=== PATIENT | female | born 1980 | race American Indian/Alaskan Native ===

== ENCOUNTER 2016-05-26 19:49 | Emergency (ER) | payer MEDICAID ==
[2016-05-26 19:49] VITALS: BMI 54.8
[2016-05-26 20:08] VITALS: BP 137/90; PULSE 98; TEMP 97.5; O2SAT 97
[2016-05-26] MEDS ORDERED: Bacitracin 500 Units/gm Oint Foilpak UD ONE (21:01)
--- NOTE | 2016-05-26 21:07 | C.PDOC ---
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 Pt admits, takes Plavix, noted bleeding from wound, was unable to stop bleeding. Otherwise, pt denies fever, chills, weakness, sensory or vascular deficits to injured finger, no deformity. Ambulate to ED for evaluation, not in any apparent distress. Time Seen by Provider: 05/26/16 20:14 Chief Complaint (Nursing): Abnormal Skin Integrity History Per: Patient Onset/Duration Of Symptoms: Sudden Onset Current Symptoms Are (Timing): Still Present Past Medical History Reviewed: Historical Data, Nursing Documentation, Vital Signs Vital Signs: Last Vital Signs Temp 97.5 F L 05/26/16 20:03 Pulse 98 H 05/26/16 20:03 Resp 16 05/26/16 20:03 BP 137/90 05/26/16 20:03 Pulse Ox 97 05/26/16 20:03 - Medical History PMH: Anemia, Arthritis, Atrial Fibrillation, Cardia Arrhythmia, HTN, Hyperthyroidism, Hypothyroidism Denies: Chronic Kidney Disease - [employer] Procedures ASSISTANCE WITH RESPIRATORY VENTILATION, 24-96 HRS, CPAP (08/10/15) Family History: States: Unknown Family Hx - Social History Hx Tobacco Use: No (stopped 2 yrs.ago) Hx Alcohol Use: No Hx Substance Use: No - Immunization History Hx Tetanus Toxoid Vaccination: No Hx Influenza Vaccination: No Hx Pneumococcal Vaccination: No Review Of Systems Except As Marked, All Systems Reviewed And Found Negative. Constitutional: Negative for: Fever, Chills Musculoskeletal: Negative for: Hand Pain Skin: Positive for: Lesions Neurological: Negative for: Weakness, Numbness Physical Exam - Physical Exam Appears: Well, Non-toxic, No Acute Distress Skin: Normal Color, Warm, Other (Left 1st distal phalanx skin avulsion at tip with mild bloody oozing. NO FB, FAROM, no neurovascular deficits.) Extremity: Normal ROM, No Tenderness, Capillary Refill (less than 2sec to left thumb), No Deformity, No Swelling Neurological/Psych: Oriented x3, Normal Speech, Normal Motor, Normal Sensation, Normal Reflexes ED Course And Treatment O2 Sat by Pulse Oximetry: 97 Progress Note: On re-evaluation, pt is afebrile, hemodynamicaly stable. non- toxic. left hand: laceration repaired with suture w/o complication. FAROM, no neurovascular deficits. Pt advised on wound care. ref. to f/u with PMD In 2 days for wound check. return to ED if any worsening or new changes. Laceration - Laceration Repair Finger laceration Wound Length (In cm): 2 Description Of Wound: Clean (skin avulsion) Anesthesia: Lidocaine 2% (digital block to left thumb) Wound Examination: Irrigated With Saline, No FB With Wound Exploration, No Tendon Injury With Wound Exploration Wound Closure: Suture (#2) Suture Technique And Material Used: Interrupted, Nylon (509) Wound Complexity: Simple Disposition Counseled Patient/Family Regarding: Diagnosis, Need For Followup - Disposition Referrals: [facility] [Outside] Disposition: HOME/ ROUTINE Disposition Time: 21:05 Condition: STABLE Additional Instructions: keep wound clean, dry Avid water exposure for 1 week Suture removal in 5-7 days Follow up with PMD in 2 days for wound check as need return to Ed at any time if any worsening or new changes. Instructions: Finger Laceration (ED) - Clinical Impression Clinical Impression: Laceration of finger
[2016-05-26 21:18] VITALS: RESP 20
== END 2016-05-26 21:17 | disposition home or self-care (01) ==
LOC: C.ER 19:49
DX: S61.012A Laceration without foreign body of left thumb without damage to nail, initial encounter (principal); W26.0XXA Contact with knife, initial encounter; Y93.G3 Activity, cooking and baking; Y92.000 Kitchen of unspecified non-institutional (private) residence as the place of occurrence of the external cause

== ENCOUNTER 2016-07-12 08:17 | Day surgery (SDC) | payer MEDICAID ==
[2016-06-20 10:19] VITALS: BMI 62.1
[~2016-07-12 08:17] MED LIST: HYDROmorphone 0.5 mg/0.5 ml ISec IVP ONE
[2016-07-12] MEDS ORDERED: Acetaminophen/Codeine elixir 120-12mg/5ml PO PRN (08:28)
[2016-07-12] MEDS ORDERED: Dextrose 5%/0.45% NS 1,000 ML IV SCH (08:30)
[2016-07-12] MEDS ORDERED: ceFAZolin IV 1 gm in Dextrose 0 GM/0 ML BAG IVPB ONE (09:43)
[2016-07-12] MEDS ORDERED: Etomidate 20 mg/10ml Inj IV ONE (10:06)
[2016-07-12] MEDS ORDERED: ceFAZolin IV 2 gm in Dextrose 1 GM/50 ML BAG IVPB ONE (10:09)
[2016-07-12] MEDS ORDERED: Propofol 10 mg/ml Inj (20 ML) ONE (10:36)
[2016-07-12] MEDS ORDERED: HYDROmorphone 0.5 mg/0.5 ml ISec IVP PRN (11:01)
[2016-07-12] MEDS ORDERED: HYDROmorphone 0.5 mg/0.5 ml ISec ONE (11:05)
[2016-07-12] MEDS ORDERED: HYDROmorphone 0.5 mg/0.5 ml ISec IVP ONE ×2 (11:42→12:38)
--- NOTE | 2016-07-12 11:52 | OP ---
PROCEDURE DATE: 07/12/2016 PREOPERATIVE DIAGNOSIS: Chronic tonsillitis. POSTOPERATIVE DIAGNOSIS: Chronic tonsillitis. PROCEDURE: Tonsillectomy. SIGNIFICANT FINDINGS: Chronically infected tonsils. DESCRIPTION OF PROCEDURE: The patient was brought in room, placed in supine position. Anesthesia was initiated through an ET tube. The patient was draped in the usual manner. Mouth gag was placed in the oral cavity, opened, suspended on towels that were placed on the patient's chest. Right tonsil was grasped, pulled medially. Incision was made in the anterior tonsillar pillar using a plasma knife. Dissection was done between tonsil and tonsillar fossa using plasma knife until the tonsil was removed. Bleeding was controlled using a plasma knife. Next, the other tonsil was grasped, pulled medially. Incision was made in the anterior tonsillar pillar using a plasma knife. Dissection was done between tonsil and tonsillar fossa using a plasma knife until the tonsil was removed. Bleeding was controlled using plasma knife. Both tonsillar beds were rubbed vigorously with plasma knife wand. No bleeding was noted. Mouth gag was let down for 30 seconds, put back up. No bleeding was noted. The patient was then taken off anesthesia and taken to recovery room in stable manner. Boris Kaur MD cc: [id number] TT: 07/12/2016 11:51:44 raoul LLOYD
[2016-07-12] MEDS ORDERED: DiphenhydrAMINE 50 mg/ml Inj IVP STA (12:33)
[2016-07-12] MEDS ORDERED: DiphenhydrAMINE 50 mg/ml Inj ONE (12:38)
[2016-07-12] MEDS ORDERED: DiphenhydrAMINE 50 mg/ml Inj IVP ONE (13:15)
[2016-07-12 14:04] VITALS: O2SAT 97
[2016-07-12 14:35] VITALS: BP 113/85; PULSE 80; RESP 17; TEMP 98
== END 2016-07-12 15:30 | disposition home or self-care (01) ==
LOC: C.SDS 08:17
PROVIDERS: ATTEND Otolaryngology
DX: J35.01 Chronic tonsillitis (principal)
CPT/HCPCS: 42826; 88304; J1170; J1200; J2704; J3010; J7040

== ENCOUNTER 2017-03-24 16:52 | Emergency (ER) | payer MEDICAID ==
[2017-03-24 17:43] VITALS: BMI 47.2
--- NOTE | 2017-03-24 19:12 | C.PDOC ---
History Of Present Illness 37 year old female presents to the ER with a complaint of intermittent dizziness that she describes as a spinning sensation for the past few days associated with palpitations. Denies chest pain, SOB, or syncopal episodes. Chief Complaint (Nursing): Dizziness/Lightheaded History Per: Patient History/Exam Limitations: no limitations Onset/Duration Of Symptoms: Days, Intermittent Episodes Current Symptoms Are (Timing): Still Present Activity At Onset Of Symptoms: Standing Seizure Or Post-ictal Symptoms: None Possible Causative Factor(s): Other (Not known) Fall Associated With With Symptoms: No Recent travel outside of the [place]: No - Symptoms Of CVA Associated Symptoms: denies: Impaired Speech, Seizure Activity, New Vision Deficit(Left), New Vision Deficit(Right), Decreased Ability To Walk, New Confusion Past Medical History Reviewed: Historical Data, Nursing Documentation, Vital Signs Vital Signs: Last Vital Signs Temp 98.5 F 03/24/17 17:45 Pulse 78 03/24/17 17:45 Resp 18 03/24/17 17:45 BP 140/97 H 03/24/17 17:45 Pulse Ox 100 03/24/17 19:18 - Medical History PMH: Anemia, Anxiety (NO MEDS.), Arthritis, Atrial Fibrillation, Cardia Arrhythmia (A-FIB), Fractures (LEFT FOOT(2014)), HTN, Hyperthyroidism, Hypothyroidism, Peripheral Edema, Sleep Apnea Surgical History: Tonsillectomy - [facility] Procedures ASSISTANCE WITH RESPIRATORY VENTILATION, 24-96 HRS, CPAP (08/10/15) Family History: States: Unknown Family Hx - Social History Hx Tobacco Use: No (stopped 2 yrs.ago) Hx Alcohol Use: Yes Hx Substance Use: No - Immunization History Hx Tetanus Toxoid Vaccination: No Hx Influenza Vaccination: Yes (2017) Hx Pneumococcal Vaccination: No Review Of Systems Constitutional: Negative for: Fever, Chills Cardiovascular: Positive for: Palpitations. Negative for: Chest Pain Respiratory: Negative for: Shortness of Breath Gastrointestinal: Negative for: Nausea, Vomiting Neurological: Positive for: Dizziness. Negative for: Other (Syncope) Physical Exam - Physical Exam Appears: Non-toxic, Other (Alert, Conscious) Skin: Normal Color, Warm, Dry Head: Atraumatic, Normacephalic Eye(s): bilateral: Normal Inspection, PERRL, EOMI Ear(s): Bilateral: Normal Oral Mucosa: Moist Neck: Normal, Supple Chest: Symmetrical, No Tenderness Cardiovascular: Rhythm Irregular Respiratory: Normal Breath Sounds, No Rales, No Rhonchi, No Wheezing Gastrointestinal/Abdominal: Soft, No Tenderness Neurological/Psych: Oriented x3, Normal Speech, Other (No focal deficits) ED Course And Treatment - Laboratory Results Result Diagrams: 03/24/17 19:25 03/24/17 19:25 O2 Sat by Pulse Oximetry: 100 (Room air) Pulse Ox Interpretation: Normal Progress Note: CT head, blood work, and urinalysis ordered. Antivert administered. Disposition Counseled Patient/Family Regarding: Diagnosis - Disposition Referrals: [facility] [Outside] Disposition: HOME/ ROUTINE Disposition Time: 23:07 Condition: STABLE Prescriptions: Meclizine [Antivert] 12.5 mg PO Q6 #14 tab Instructions: Dizziness (ED), Vertigo (ED) Forms: [facility] (Tongan) - POA Present On Arrival: None - Clinical Impression Clinical Impression: Dizziness, Vertigo - Scribe Statement The provider has reviewed the documentation as recorded by the Scribosmin Gould All medical record entries made by the Lunaibosmin were at my direction and personally dictated by me. I have reviewed the chart and agree that the record accurately reflects my personal performance of the history, physical exam, medical decision making, and the department course for this patient. I have also personally directed, reviewed, and agree with the discharge instructions and disposition.
[2017-03-24 19:29] LABS: BASO % 0.5 % (0.0-2.0); EOS % 0.4 % (0.0-4.0); HEMOGLOBIN 12.8 g/dL (11.0-16.0); LYMPH # 1.7 K/uL (1.0-4.3); LYMPH % 16.5 % (20.0-40.0); MEAN CORPUSCULAR HEMOGLOBIN 27.4 pg (27.0-31.0); MEAN CORPUSCULAR HGB CONC 32.3 g/dL (33.0-37.0); MEAN PLATELET VOLUME 8.7 fL (7.2-11.7); MONO # 0.7 K/uL (0.0-0.8); MONO % 6.7 % (0.0-10.0); NEUT # 7.8 K/uL (1.8-7.0); NEUT % 75.9 % (50.0-75.0); RBC 4.68 Mil/uL (3.80-5.20); RED CELL DISTRIBUTION WIDTH 18.4 % (11.5-14.5); WHITE BLOOD COUNT 10.3 K/uL (4.8-10.8)
[2017-03-24 19:36] LABS: INR 1.2; PROTHROMBIN TIME 13.1 SECONDS (9.7-12.2)
[2017-03-24 19:42] LABS: CALCIUM 8.8 mg/dl (8.6-10.4); GFR AFRICAN-AMERICAN > 60; GFR NON-AFRICAN AMERICAN > 60
[2017-03-24 19:45] LABS: ALB/GLOB RATIO 0.9 (1.0-2.1); ALT/SGPT 25 U/L (9-52); AST/SGOT 61 U/L (14-36); BLOOD UREA NITROGEN 7 mg/dL (7-17)
[2017-03-24 23:26] VITALS: BP 121/86; PULSE 72; RESP 16; TEMP 97.9; O2SAT 97
--- NOTE | 2017-03-25 07:29 | CT ---
PROCEDURE: CT HEAD WITHOUT CONTRAST. HISTORY: Headache COMPARISON: None available. TECHNIQUE: Axial computed tomography images were obtained through the head/brain without intravenous contrast. Radiation dose: Total exam DLP = 865.28 mGy-cm. This CT exam was performed using one or more of the following dose reduction techniques: Automated exposure control, adjustment of the mA and/or kV according to patient size, and/or use of iterative reconstruction technique. FINDINGS: HEMORRHAGE: No intracranial hemorrhage. BRAIN: No mass effect or edema. The jacques-white matter differentiation appears intact. VENTRICLES: No hydrocephalus. CALVARIUM: Unremarkable. PARANASAL SINUSES: Unremarkable as visualized. No significant inflammatory changes. MASTOID AIR CELLS: Unremarkable as visualized. No inflammatory changes. OTHER FINDINGS: None. IMPRESSION: No acute intracranial pathology identified. Preliminary impression was provided by virtual radiologic.
--- NOTE | 2017-03-26 11:06 | CARD ---
APPROVED REPORT EKG Measurement Heart [id number] CO [id number] <Conclusion> Normal sinus rhythm Nonspecific T wave abnormality Abnormal ECG
== END 2017-03-24 23:26 | disposition home or self-care (01) ==
LOC: C.ER 16:52
DX: R42 Dizziness and giddiness (principal); I10 Essential (primary) hypertension; I48.91 Unspecified atrial fibrillation

== ENCOUNTER 2018-05-22 07:51 | Day surgery (SDC) | payer MEDICAID ==
[2018-05-11 14:05] VITALS: BMI 41.5
[~2018-05-22 07:51] MED LIST changes: +Dexamethasone 4 mg/1 ml ONE; -HYDROmorphone 0.5 mg/0.5 ml ISec IVP ONE; +ceFAZolin 1 gm in NS 0 GM/0 ML BAG IVPB ONE
[2018-05-22] MEDS ORDERED: Morphine 10 mg/5 ml Oral Soln PO PRN (08:13)
[2018-05-22] MEDS ORDERED: Dextrose 5%/0.45% NS 1,000 ML IV SCH (08:15)
[2018-05-22] MEDS ORDERED: ceFAZolin 1 gm in NS 2 GM/200 ML BAG IVPB ONE (09:42)
[2018-05-22] MEDS ORDERED: Rocuronium 10 mg/ml (5 ml) ONE (10:15)
[2018-05-22] MEDS ORDERED: Propofol 10 mg/ml Inj (20 ML) ONE (10:15)
[2018-05-22] MEDS ORDERED: Midazolam 2 MG/2 ML VIAL ONE (10:15)
[2018-05-22] MEDS ORDERED: Oxymetazoline 0.05% Nasal Spray (30 ml) NS ONE ×2 (11:25→11:49)
[2018-05-22] MEDS ORDERED: Lactated Ringer's 1,000 ML IV ONE (12:30)
[2018-05-22] MEDS: HYDROmorphone 0.5 mg/0.5 ml ISec IVP PRN ×3 (12:33→12:48)
[2018-05-22 12:47] VITALS: RESP 12
[2018-05-22] MEDS ORDERED: DiphenhydrAMINE 50 mg/ml Inj IVP STA (13:21)
[2018-05-22] MEDS ORDERED: DiphenhydrAMINE 50 mg/ml Inj IVP ONE (14:00)
[2018-05-22] MEDS ORDERED: DiphenhydrAMINE 50 mg/ml Inj ONE (14:07)
[2018-05-22] MEDS ORDERED: DiphenhydrAMINE 50 mg/ml Inj IM ONE (14:30)
[2018-05-22 14:47] VITALS: PULSE 70; TEMP 98
--- NOTE | 2018-05-22 14:57 | OP ---
PROCEDURE DATE: 05/22/2018 PREOPERATIVE DIAGNOSIS: Large adenoids. POSTOPERATIVE DIAGNOSIS: Large adenoids. PROCEDURE: Adenoidectomy. SIGNIFICANT FINDINGS: Large adenoids. DESCRIPTION OF PROCEDURE: The patient was brought into room, placed in supine position. Anesthesia was initiated through an ET tube. Shoulder roll was placed, neck extended. The patient was draped in usual manner. Mouth gag was placed in oral cavity, opened, suspended on the Meier industrial electrical engineer the usual manner. The red rubber catheters were inserted into nasal cavity, taken out of mouth and clamped in order to provide retraction of soft palate. Mirror was used to visualize the adenoids which were noted to be enlarged and removed using curettes. Bleeding was controlled using tonsil sponges and suction cautery. Red rubber catheters were removed. The mouth gag was taken out and removed. The patient was taken off anesthesia and taken to recovery room in stable manner. Boris Kaur MD
[2018-05-22 15:12] VITALS: BP 126/67; O2SAT 99
== END 2018-05-22 15:58 | disposition home or self-care (01) ==
LOC: C.SDS 07:51
PROVIDERS: ATTEND Otolaryngology
DX: J35.2 Hypertrophy of adenoids (principal)
CPT/HCPCS: 42831; 88304; J0690; J1170; J1200; J2001; J2250; J2405; J2704; J3010; J7040